=== PATIENT | male | born 1960 | race Caucasian/White ===

== ENCOUNTER 2024-07-12 12:11 | Emergency (ER) | payer OTHER, SELFPAY ==
[2024-07-12 12:15] VITALS: BP 144/103
[2024-07-12 13:40] VITALS: BMI 29.3
[2024-07-12 15:15] VITALS: BP 135/78
[2024-07-12 15:17] VITALS: BP 135/78
--- NOTE | 2024-07-12 15:33 | ED.MUSCINJ ---
HPI-Injury
General
Chief Complaint: Musculo-Skeletal Complaint
Source: patient
Exam Limitations: none
Time Seen by Provider: 07/12/24 14:21
Nursing documentation reviewed up to this point in time: agreed with
History of Present Illness-Injury
Initial Injury comments:
63-year-old male with history of COPD, NIDDM, prostate CA with robotic radical prostatectomy and pelvic node dissection 2022, bilateral bicep tendon/rotator cuff repair presents stating walking to [employer], tripped over lip in ramp, describes
landing on left knee and has abrasions on the knee and intermittent shooting pains, hit frontal scalp on glass wall, no LOC, denies headache or neck pain, has pain and inability to move the right shoulder. Has been able to ambulate steadily since
the fall. Denies knee feeling unstable.
Past History
Past History
ED Past Medical History: COPD and NIDDM
ED Past Surgical History: Cholecystectomy, Orthopedic and Urological (prostatectomy)
Review of Systems
Review of Systems
Allergies reviewed?: Yes
All Other Systems: ROS reviewed and negative except as documented in HPI and ROS
Constitutional: Denies fever
Respiratory: Denies trouble breathing
Cardiac: Denies chest pain
ABD/GI: Denies abdominal pain
: Denies incontinence
Musculoskeletal: Reports other (pain and inability to ROM right shoulder, pain left knee); Denies neck pain or back pain
Skin: Reports other (scrapes left knee)
Neurological: Reports no symptoms
Phy Exam
Physical Exam
Physical Exam:
GENERAL: No acute distress. A&Ox3.
CONSTITUTIONAL: Afebrile.
HEADL Mild erythema anterior scalp, skin intact, no swelling
EYES: PERRL, conjunctivae normal
Neck: Supple
ENMT: moist mucus membranes, Pharynx nl
RESPIRATORY: Regular respirations, nonlabored, lungs clear.
CARDIOVASCULAR: Regular rate and rhythm, no murmurs, no rubs.
GI: Soft, nontender, normal BS
MUSCULOSKELETAL: No spinal bony tenderness. Significant limited ROM right shoulder, full ROM right elbow and wrist. No swelling. Left knee with deep clean abrasions, Mildly limited ROM, able to straighten, tender over patella, no significant
swelling. Moves with ease. Well perfused.
SKIN: Warm, dry, pink, Deep clean abrasions left knee.
PSYCH: Normal mood and affect. Well kept, interactive and appropriate
NEUROLOGIC: Awake, alert and oriented. No focal neurological deficits
Injury Course
Orders/Labs/Results
Orders:
Orders
07/12/24 12:19
Knee, Left 4 or More Views [CR Knee - Left 4 Or More View*] Urgent
Comment:
Reason For Exam: fall, pain
Shoulder, Right, Trauma [CR Shoulder, Trauma - Right] Urgent
Comment:
Reason For Exam: fall, pain with ROM
07/12/24 16:08
Anthony Wrap Left-Treatment ONCE
Sling Right-Treatment ONCE
Ibuprofen [Motrin] 600 mg PO NOW STA
MDM/Problems Addressed
MDM/Problems Addressed:
63-year-old male with history of COPD, NIDDM, prostate CA with robotic radical prostatectomy and pelvic node dissection 2022, bilateral bicep tendon/rotator cuff repair presents stating walking to [employer], tripped over lip in ramp, describes
landing on left knee and has abrasions on the knee and intermittent shooting pains, hit frontal scalp on glass wall, no LOC, denies headache or neck pain, has pain and inability to move the right shoulder. Has been able to ambulate steadily since
the fall. Denies knee feeling unstable.
Right shoulder x-ray: Radiology report read: IMPRESSION:
Moderate degenerative changes of the right shoulder without evidence for acute fracture or dislocation.
Left knee x-ray radiology report read: IMPRESSION:
No acute fracture or dislocation. Moderate to severe tricompartmental osteoarthritis. Small suprapatellar joint effusion with small ossified loose body
Pt OOB and ambulating well.
Sling applied to right arm. Anthony wrap to left knee
Pt ambulated out with normal gait at discharge
*Critical Care Note
Total Time (30-74mins, 75-104mins- exclusive of procedures): Not Applicable
ED Attending Note
-
Portions of this chart may have been created with voice recognition software.� Occasional wrong word or��sound alike� substitutions may have occurred due to the inherent limitations of voice recognition software.
Discharge Plan
Departure
Patient Disposition: Home (Routine Discharge)
Date of Disposition: 07/12/24
Time of Disposition: 16:52
Patient with high blood pressure during this ER visit?: Yes
Condition: Good
Discharge Problem:
Fall from slip, trip, or stumble, Abrasion of left knee, Soft tissue injury of left knee, Injury of right shoulder, Contusion of scalp
Instructions: Head injury in adults, Knee Sprain (DC), Using Cold for Pain, Abrasions ED, Shoulder Pain ED
Prescriptions:
No Action
multivitamin Tablet
1 tab PO DAILY
fluticasone propion-salmeterol [Advair Diskus] 250-50 mcg/dose Blister With Device
1 inh INHALATION BID
ascorbic acid (vitamin C) [Vitamin C] 1,000 mg Tablet
1,000 mg PO DAILY
atorvastatin 20 mg Tablet
20 mg PO Q48H
cetirizine [Zyrtec] 10 mg Tablet
10 mg PO DAILY
albuterol sulfate 1.25 mg/3 mL Solution For Nebulization
1.25 mg INHALATION QID PRN (Reason: asthma)
Patient Comments:
last used 2021
metformin 1,000 mg Tablet
1,000 mg PO BID
montelukast 10 mg Tablet
10 mg PO DAILY
fluticasone propionate 50 mcg/actuation Yolyn,Suspension
2 spray INTRANASAL PRN PRN (Reason: CONGESTION)
coenzyme Q10 [CoQ-10] 100 mg Capsule
200 mg PO DAILY
cholecalciferol (vitamin D3) [Vitamin D3] 50 mcg (2,000 unit) Capsule
50 mcg PO DAILY
Jardiance 25 mg Tablet
25 mg PO DAILY
aspirin 81 mg Capsule
81 mg PO DAILY
hydrocodone-acetaminophen 5-325 mg Tablet
1 tab PO Q4HPRN PRN (Reason: severe pain) Qty: 10 0RF
Referrals:
Jian Craig MD [Active] - Next open appointment
Charlotte France, [Family Provider] -
Activity Restrictions/Additional Instructions:
As we discussed, wear the sling when up and around, moving the shoulder more and more each day as comfort permits.
Call and make appointment with the orthopedic doctor to evaluate the shoulder and the left knee.
Ibuprofen 600 mg (with food) every 6 hours as needed for pain.
Interventions
Interventions:
*Risk Screen - Suicide Last Done: 07/12/24 12:15
*General Assessment Last Done: 07/12/24 12:15
*Neglect/Abuse Screening Last Done: 07/12/24 12:15
ED- Fall Risk Assessment Last Done: 07/12/24 17:03
*ED COVID-19 Vaccine History Last Done: 07/12/24 13:40
*Nursing Disposition Last Done: 07/12/24 17:03
ED-Musculoskeletal Assessment Last Done: 07/12/24 13:40
Discharge Date and Time
Discharge Date/Time: 07/12/24 17:04
Print Language: [email or web address]
[2024-07-12 16:00] VITALS: BP 131/89
[2024-07-12] MEDS: MOTRIN 600 MG PO (16:18)
== END 2024-07-12 17:04 | disposition home or self-care (01) ==
LOC: EMR 12:11
PROVIDERS: EMERGENCY PHYSICIAN Emergency Medicine; FAMILY PHYSICIAN Family Medicine
DX: S00.03XA Contusion of scalp, initial encounter (principal); S80.212A Abrasion, left knee, initial encounter; S49.91XA Unspecified injury of right shoulder and upper arm, initial encounter; W18.09XA Striking against other object with subsequent fall, initial encounter; E11.9 Type 2 diabetes mellitus without complications; J44.9 Chronic obstructive pulmonary disease, unspecified; Z85.46 Personal history of malignant neoplasm of prostate; Z90.79 Acquired absence of other genital organ(s); Z90.49 Acquired absence of other specified parts of digestive tract
CPT/HCPCS: 99284; 73030; 73564

== ENCOUNTER → 2024-07-31 13:25 | Outpatient (REF) | payer OTHER, SELFPAY | LOC: HWRAD 13:25 | PROVIDERS: ATTENDING PHYSICIAN Orthopaedic Surgery; FAMILY PHYSICIAN Internal Medicine | DX: M25.511 Pain in right shoulder (principal) | CPT/HCPCS: 73200 ==

== ENCOUNTER 2024-08-28 06:30 | Day surgery (SDC) | payer OTHER, SELFPAY ==
[2024-08-28] VITALS (12 sets, daily range): BP systolic 104–154; BP diastolic 64–81; BMI 30.3
[2024-08-28 09:36] LABS: Glucose - Point of Care 133 mg/dl (70-99)
[2024-08-28] MEDS: TYLENOL 1000 MG PO (09:37)
[2024-08-28] MEDS: CELEBREX 200 MG PO (09:37)
[2024-08-28] MEDS: NORMOSOL-R/PLASMALYTE-A 1000 IV (09:37)
[2024-08-28 13:45] LABS: Glucose - Point of Care 146 mg/dl (70-99)
== END 2024-08-28 16:03 | disposition home or self-care (01) ==
LOC: SDS 06:30
PROVIDERS: ATTENDING PHYSICIAN Orthopaedic Surgery
DX: S46.011A Strain of muscle(s) and tendon(s) of the rotator cuff of right shoulder, initial encounter (principal); S43.431A Superior glenoid labrum lesion of right shoulder, initial encounter; X58.XXXA Exposure to other specified factors, initial encounter
CPT/HCPCS: 29827; 82962; C1713

== ENCOUNTER → 2024-09-25 06:25 | Day surgery (SDC) | payer OTHER, SELFPAY ==
[2024-09-25 07:45] LABS: Glucose - Point of Care 146 mg/dl (70-99)
== END ==
LOC: GI 06:25
PROVIDERS: ATTENDING PHYSICIAN Internal Medicine Gastroenterology
DX: Z12.11 Encounter for screening for malignant neoplasm of colon (principal); K57.30 Diverticulosis of large intestine without perforation or abscess without bleeding; K64.8 Other hemorrhoids; D12.0 Benign neoplasm of cecum
CPT/HCPCS: 45385; 88305; 82962

== ENCOUNTER → 2024-09-26 11:31 | Outpatient (REF) | payer OTHER, SELFPAY | LOC: PET 11:31 | PROVIDERS: ATTENDING PHYSICIAN Radiology Radiation Oncology | DX: C61 Malignant neoplasm of prostate (principal) | CPT/HCPCS: 78815 ==

== ENCOUNTER 2025-07-21 06:23 | Day surgery (SDC) | payer OTHER, SELFPAY ==
[2025-07-10 14:00] VITALS: BMI 32.4
[2025-07-21] VITALS (8 sets, daily range): BP systolic 123–150; BP diastolic 66–82; BMI 32.4
[2025-07-21] MEDS: NORMOSOL-R/PLASMALYTE-A 1000 IV (10:31)
[2025-07-21 10:42] LABS: Glucose - Point of Care 161 mg/dl (70-99)
== END 2025-07-21 15:00 | disposition home or self-care (01) ==
LOC: SDS 06:23
PROVIDERS: ATTENDING PHYSICIAN Urology
DX: N47.1 Phimosis (principal)
CPT/HCPCS: 54161; 36415; 82962; 93005